=== PATIENT | female | born 1995 | race Caucasian/White ===

== ENCOUNTER 2020-11-28 11:04 | Emergency (ER) | payer BC, OTHER ==
[2020-11-28 11:18] VITALS: BP 139/87; PULSE 72; TEMP 97.9; BMI 26.4
[2020-11-28] MEDS ORDERED: ONDANSETRON 4 MG/2 ML VIAL IVPUSH ONE (11:53)
[2020-11-28] MEDS ORDERED: KETOROLAC TROMETHAMINE 30 MG/1 ML VIAL IVPUSH ONE (11:53)
[2020-11-28] MEDS ORDERED: SODIUM CHLORIDE 0.9% 500 ML INFUS.BAG IV ONE (11:53)
[2020-11-28] MEDS ORDERED: ONDANSETRON 4 MG/2 ML VIAL ONE (12:36)
[2020-11-28] MEDS ORDERED: KETOROLAC TROMETHAMINE 30 MG/1 ML VIAL ONE (12:36)
[2020-11-28 13:03] LABS: BASO % 0.3 % (0-2.0); HEMATOCRIT 39.7 % (32.4-45.2); HEMOGLOBIN 13.5 GM/dL (10.7-15.3); LYMPH % 3.5 % (8-40); MCHC 33.9 g/dl (32.0-36.0); MEAN CELL VOLUME 85.6 fl (80-96); MEAN PLT VOLUME 7.4 fl (7.5-11.1); MONO % 2.7 % (3.8-10.2); NEUT % 93.5 % (42.8-82.8); PLATELET COUNT 270 10^3/uL (134-434); RBC 4.64 M/mm3 (3.60-5.2); WHITE BLOOD COUNT 12.6 K/mm3 (4.0-10.0)
[2020-11-28 13:24] LABS: ALBUMIN 4.3 g/dl (3.4-5.0); BLOOD UREA NITROGEN 13.7 mg/dL (7-18); CALCIUM 9.3 mg/dL (8.5-10.1)
[2020-11-28 13:28] LABS: CREATININE 0.9 mg/dL (0.55-1.3)
[2020-11-28 13:29] LABS: BILIRUBIN,TOTAL 0.4 mg/dL (0.2-1); TOT PROT 8.2 g/dl (6.4-8.2)
[2020-11-28 13:43] LABS: ANISOCYTOSIS 1+; MACROCYTOSIS 0; PLATELET ESTIMATE NORMAL
[2020-11-28 15:14] LABS: HCG,QUALITATIVE URINE Negative
[2020-11-28 15:26] LABS: URINE APPEARANCE CLEAR; URINE BILIRUBIN NEGATIVE (NEGATIVE); URINE COLOR YELLOW; URINE GLUCOSE (UA) NEGATIVE (NEGATIVE); URINE KETONE NEGATIVE (NEGATIVE); URINE LEUK ESTERASE NEGATIVE (NEGATIVE); URINE NITRITE NEGATIVE (NEGATIVE); URINE PROTEIN NEGATIVE (NEGATIVE); URINE UROBILINOGEN 0.2 mg/dL (0.2-1.0)
[2020-11-28] MEDS ORDERED: TAMSULOSIN HCL 0.4 MG CAP PO ONE (15:29)
[2020-11-28] MEDS ORDERED: TAMSULOSIN HCL 0.4 MG CAP ONE (15:33)
[2020-11-28 16:33] LABS: EPI CELLS 7.6 /uL (0-25.1); HYALINE CASTS 0 /uL (0-3.1); URINE BACTERIA 77.3 /uL (0-1359); URINE RBC 12.4 /uL (0-23.9); URINE WBC 5.8 /uL (0-25.8)
== END 2020-11-28 16:41 | disposition home or self-care (01) ==
LOC: JER 11:04
PROC: 3E0333Z Introduction of Anti-inflammatory into Peripheral Vein, Percutaneous Approach (ICD-10-PCS; principal; 2020-11-28)
PROC: 3E033GC Introduction of Other Therapeutic Substance into Peripheral Vein, Percutaneous Approach (ICD-10-PCS; 2020-11-28)
DX: N23 Unspecified renal colic (principal)
CPT/HCPCS: 36415; 74176-TC; 80053; 81003; 84703; 85025; 99284-25